=== PATIENT | female | born 1990 | race Asian ===

== ENCOUNTER 2024-04-13 08:29 | Emergency (ER) | payer OTHER ==
[~2024-04-13] VITALS: Ht 162.6 cm; Wt 49.9 kg
[2024-04-13 08:38] VITALS: BP_SYST 120; PULSE 66; RESP 16; TEMP 97.8; O2SAT 99
[2024-04-13] MEDS ORDERED: DIPH25CA83 PO (08:48)
[2024-04-13] MEDS ORDERED: METH-776 PO (08:48)
[2024-04-13] MEDS ORDERED: FAMO40TA71 PO (08:48)
[2024-04-13] MEDS: DEXAMETHASONE SOD PHOSPHATE 10 MG/ML VIAL IM ONE (08:49)
[2024-04-13 08:55] VITALS: BP_SYST 120; PULSE 66; RESP 16; TEMP 97.8; O2SAT 99
== END 2024-04-13 08:54 | disposition home or self-care (01) ==
LOC: SED 08:29
DX: R21 Rash and other nonspecific skin eruption (principal); T63.481A Toxic effect of venom of other arthropod, accidental (unintentional), initial encounter; Y92.89 Other specified places as the place of occurrence of the external cause
CPT/HCPCS: 99283; 96372; J1100